=== PATIENT | male | born 1940 | race Caucasian/White ===

== ENCOUNTER 2017-04-09 14:26 | Inpatient (IN) | payer OTHER ==
[~2017-04-09] VITALS: Ht 175.3 cm; Wt 106.3 kg
[2017-04-09 15:40] LABS: HEMATOCRIT 45.6 % (38.0-50.0); HEMOGLOBIN 16.1 G/DL (12.5-16.6); MCHC 35.3 G/DL (30.0-36.0); MCV 99.1 FL (86-99); PLATELET COUNT 238 K/uL (156-360); RBC DIS.WIDTH-CV 12.1 % (11.8-14.6); RBC DIS.WIDTH-SD 43.8 % (39-53); WHITE BLOOD COUNT 9.6 K/uL (4.1-10.2)
[2017-04-09 15:53] LABS: CHLORIDE 105 mEq/L (99-109); POTASSIUM 3.9 mEq/L (3.7-5.4); SODIUM 138 mEq/L (136-147)
[2017-04-09 15:55] LABS: GLUCOSE 120 mg/dL (70-99)
[2017-04-09 15:59] LABS: GFR ESTIMATE (CALCULATED) > 59 mL/min/ (58.99-99999)
[2017-04-09 16:00] LABS: UREA NITROGEN (BUN) 15 mg/dL (9-23)
[2017-04-09 16:04] LABS: TROP-I INTERPRETATION POSITIVE; TROPONIN-I 4.57 ng/mL (0.0-0.30)
[2017-04-09] MEDS ORDERED: CIALIS20 MG PO (16:37)
[2017-04-09] MEDS ORDERED: ATORVASTATIN CA20 MG PO (16:37)
[2017-04-09] MEDS ORDERED: VALSARTAN-HCTZ1 EAC3 PO (16:37)
[2017-04-09] MEDS ORDERED: ASPIR-TRIN325 M1 PO (16:38)
[2017-04-09] MEDS ORDERED: XALATAN2.5 ML BOTH EYES (16:39)
[2017-04-09 16:56] LABS: PTT 27.5 SEC (25-37)
[2017-04-09 17:32] LABS: TROP-I INTERPRETATION POSITIVE
[2017-04-09 17:33] LABS: TROPONIN-I 4.55 ng/mL (0.0-0.30)
[2017-04-09 21:15] VITALS: BP 139/79
[2017-04-09 23:00] VITALS: BP 120/76
[2017-04-10 00:01] LABS: INTER. NORMALIZED RATIO 1.2
[2017-04-10 00:06] LABS: PTT 82.1 SEC (25-37)
[2017-04-10 04:30] VITALS: BP 114/68
[2017-04-10 08:50] VITALS: BP 117/69
[2017-04-10 14:29] VITALS: BP 125/70
[2017-04-10 14:55] LABS: TROP-I INTERPRETATION POSITIVE; TROPONIN-I 1.99 ng/mL (0.0-0.30)
[2017-04-10 15:38] VITALS: BP 124/69
[2017-04-10 16:13] VITALS: BP 122/74
[2017-04-10 19:30] VITALS: BP 115/63
[2017-04-11 00:20] VITALS: BP 130/74
[2017-04-11 04:00] VITALS: BP 111/64
[2017-04-11 06:09] LABS: HEMATOCRIT 40.9 % (38.0-50.0); MCH 34.2 PG (29.0-34.0); MCHC 33.5 G/DL (30.0-36.0); PLATELET COUNT 209 K/uL (156-360); RBC DIS.WIDTH-CV 12.3 % (11.8-14.6); RBC DIS.WIDTH-SD 46.3 % (39-53); RED BLOOD COUNT 4.01 M/uL (4.00-5.50); WHITE BLOOD COUNT 9.5 K/uL (4.1-10.2)
[2017-04-11 06:14] LABS: HEMOGLOBIN 13.7 G/DL (12.5-16.6)
[2017-04-11] MEDS ORDERED: CLOPIDOGREL75 MG PO (07:01)
[2017-04-11] MEDS ORDERED: ATORVASTATIN CA40 MG PO (07:01)
[2017-04-11] MEDS ORDERED: ASPIR-LOW81 MG PO (07:02)
[2017-04-11] MEDS ORDERED: NORVASC5 MG PO (07:03)
[2017-04-11 07:19] VITALS: BP 133/71
[2017-04-11 11:05] VITALS: BP 123/78
== END 2017-04-11 11:33 | disposition home or self-care (01) | DRG 247 ==
LOC: EME 14:26 → 4EAST 19:30 → EDOF 19:30 → ENRESERV 20:22 → 4EAST 21:15
PROVIDERS: Internal Medicine; Internal Medicine Cardiovascular Disease; Physician Assistant
PROC: B2151ZZ Fluoroscopy of Left Heart using Low Osmolar Contrast (ICD-10-PCS; principal; 2017-04-10)
PROC: 027034Z Dilation of Coronary Artery, One Artery with Drug-eluting Intraluminal Device, Percutaneous Approach (ICD-10-PCS; principal; 2017-04-10)
PROC: 4A033BC Measurement of Arterial Pressure, Coronary, Percutaneous Approach (ICD-10-PCS; principal; 2017-04-10)
PROC: 4A023N7 Measurement of Cardiac Sampling and Pressure, Left Heart, Percutaneous Approach (ICD-10-PCS; principal; 2017-04-10)
PROC: B2111ZZ Fluoroscopy of Multiple Coronary Arteries using Low Osmolar Contrast (ICD-10-PCS; principal; 2017-04-10)
DX: I21.4 Non-ST elevation (NSTEMI) myocardial infarction (principal); I25.10 Atherosclerotic heart disease of native coronary artery without angina pectoris; I10 Essential (primary) hypertension; E11.9 Type 2 diabetes mellitus without complications; E78.5 Hyperlipidemia, unspecified; E66.9 Obesity, unspecified; N52.9 Male erectile dysfunction, unspecified; Z87.891 Personal history of nicotine dependence; Z79.82 Long term (current) use of aspirin; Z68.34 Body mass index [BMI] 34.0-34.9, adult; Z82.49 Family history of ischemic heart disease and other diseases of the circulatory system
CPT/HCPCS: 71046; 80048; 84484; 85027; 85347; 85610; 85730; 93005; 99281; 99285; C1725; C1769; C1874; C1887; J0153; J1644; J2250; J3010

== ENCOUNTER 2017-04-14 08:54 | Observation (INO) | payer OTHER ==
[~2017-04-14] VITALS: Ht 175.3 cm; Wt 102.6 kg
[~2017-04-14 08:54] MED LIST: ASPIR-LOW81 MG PO; ASPIR-TRIN325 M1 PO; ATORVASTATIN CA20 MG PO; ATORVASTATIN CA40 MG PO; CIALIS20 MG PO; CLOPIDOGREL75 MG PO; NORVASC5 MG PO; VALSARTAN-HCTZ1 EAC3 PO; XALATAN2.5 ML BOTH EYES
[2017-04-14 09:55] LABS: BASOPHIL (%) 0.4 % (0-1); EOSINOPHIL (%) 0.4 % (0-5); HEMATOCRIT 42.6 % (38.0-50.0); HEMOGLOBIN 15.1 G/DL (12.5-16.6); IMMATURE GRANULOCYTE (%) 0.5 % (0.0-0.7); LYMPHOCYTE (%) 14.7 % (15-42); LYMPHOCYTE COUNT 1.1 K/uL (1.0-2.8); MCH 35.6 PG (29.0-34.0); MCHC 35.4 G/DL (30.0-36.0); MCV 100.5 FL (86-99); MONOCYTE (%) 7.7 % (3-12); MONOCYTE COUNT 0.6 K/uL (0-0.8); NEUTROPHIL (%) 76.3 % (45-76); NEUTROPHIL COUNT 5.9 K/uL (1.8-6.4); PLATELET COUNT 213 K/uL (156-360); RBC DIS.WIDTH-CV 12.1 % (11.8-14.6); RBC DIS.WIDTH-SD 44.8 % (39-53); RED BLOOD COUNT 4.24 M/uL (4.00-5.50); WHITE BLOOD COUNT 7.8 K/uL (4.1-10.2)
[2017-04-14 10:06] LABS: CHLORIDE 106 mEq/L (99-109); POTASSIUM 3.9 mEq/L (3.7-5.4); SODIUM 139 mEq/L (136-147)
[2017-04-14 10:07] LABS: GLUCOSE 119 mg/dL (70-99)
[2017-04-14 10:11] LABS: GFR ESTIMATE (CALCULATED) > 59 mL/min/ (58.99-99999)
[2017-04-14 10:12] LABS: UREA NITROGEN (BUN) 15 mg/dL (9-23)
[2017-04-14 10:13] LABS: INTER. NORMALIZED RATIO 1.1
[2017-04-14 10:15] LABS: TROP-I INTERPRETATION INDETERMINATE; TROPONIN-I 0.54 ng/mL (0.0-0.30)
[2017-04-14 10:18] LABS: PTT 26.1 SEC (25-37)
[2017-04-14 11:44] VITALS: BP 132/63
[2017-04-14 12:08] LABS: MAGNESIUM 2.2 mg/dL (1.3-2.7)
[2017-04-14 14:58] VITALS: BP 120/69
[2017-04-14 15:03] LABS: TROP-I INTERPRETATION INDETERMINATE; TROPONIN-I 0.52 ng/mL (0.0-0.30)
[2017-04-14 20:52] VITALS: BP 112/67
[2017-04-14 22:24] LABS: TROP-I INTERPRETATION INDETERMINATE; TROPONIN-I 0.43 ng/mL (0.0-0.30)
[2017-04-15 00:41] VITALS: BP 126/71
[2017-04-15 04:16] VITALS: BP 110/69
[2017-04-15 05:53] LABS: HEMATOCRIT 45.5 % (38.0-50.0); HEMOGLOBIN 15.4 G/DL (12.5-16.6); MCHC 33.8 G/DL (30.0-36.0); MCV 100.4 FL (86-99); PLATELET COUNT 233 K/uL (156-360); RBC DIS.WIDTH-CV 12.1 % (11.8-14.6); RBC DIS.WIDTH-SD 45.1 % (39-53); RED BLOOD COUNT 4.53 M/uL (4.00-5.50); WHITE BLOOD COUNT 8.3 K/uL (4.1-10.2)
[2017-04-15 06:09] LABS: TROP-I INTERPRETATION INDETERMINATE; TROPONIN-I 0.51 ng/mL (0.0-0.30)
[2017-04-15 06:18] LABS: ALBUMIN 4.4 G/DL (3.2-4.8); ALKALINE PHOSPHATASE 55 IU/L (3-129); ALT (GPT) 22 IU/L (3-49); AST (GOT) 19 IU/L (2-34); CHLORIDE 102 MEQ/L (99-109); CREATININE 1.1 MG/DL (0.6-1.3); GFR ESTIMATE (CALCULATED) > 59 mL/min/ (58.99-99999); GLUCOSE 113 mg/dL (70-99); POTASSIUM 3.8 MEQ/L (3.7-5.4); SODIUM 137 MEQ/L (136-147); TOTAL BILIRUBIN 1.5 MG/DL (0.0-1.0); TOTAL PROTEIN 7.6 G/DL (6.4-8.3); UREA NITROGEN (BUN) 17 mg/dL (9-23)
[2017-04-15 09:07] LABS: TROP-I INTERPRETATION INDETERMINATE; TROPONIN-I 0.32 ng/mL (0.0-0.30)
[2017-04-15] MEDS ORDERED: NITROSTAT0.4 MG SL (09:39)
[2017-04-15] MEDS ORDERED: DOCUSATE SODIU100 MG PO (09:40)
[2017-04-15 10:02] VITALS: BP 119/68
== END 2017-04-15 11:08 | disposition home or self-care (01) ==
LOC: EME 08:54 → EDOF 10:41 → 5WEST 10:41 → ENRESERV 11:07 → 5WEST 11:39
PROVIDERS: Emergency Medicine; Internal Medicine; Internal Medicine Cardiovascular Disease
DX: I21.4 Non-ST elevation (NSTEMI) myocardial infarction (principal); I10 Essential (primary) hypertension; I25.10 Atherosclerotic heart disease of native coronary artery without angina pectoris; E78.5 Hyperlipidemia, unspecified; I65.23 Occlusion and stenosis of bilateral carotid arteries; Z82.49 Family history of ischemic heart disease and other diseases of the circulatory system; Z79.02 Long term (current) use of antithrombotics/antiplatelets; E66.01 Morbid (severe) obesity due to excess calories; Z68.33 Body mass index [BMI] 33.0-33.9, adult; I25.2 Old myocardial infarction; Z95.5 Presence of coronary angioplasty implant and graft; Z80.6 Family history of leukemia; Z79.82 Long term (current) use of aspirin
CPT/HCPCS: 71045; 80048; 80053; 83735; 84484; 85025; 85027; 85610; 85730; 93005; 93880; 99281; 99284; G0378; J1650

== ENCOUNTER 2017-04-20 14:58 | Observation (INO) | payer OTHER ==
[~2017-04-20] VITALS: Ht 175.3 cm; Wt 110.2 kg
[~2017-04-20 14:58] MED LIST changes: +DOCUSATE SODIU100 MG PO; +NITROSTAT0.4 MG SL
[2017-04-20 15:37] LABS: HEMATOCRIT 40.3 % (38.0-50.0); HEMOGLOBIN 13.9 G/DL (12.5-16.6); MCH 34.9 PG (29.0-34.0); MCHC 34.5 G/DL (30.0-36.0); MCV 101.3 FL (86-99); PLATELET COUNT 218 K/uL (156-360); RBC DIS.WIDTH-CV 11.9 % (11.8-14.6); RBC DIS.WIDTH-SD 44.7 % (39-53); RED BLOOD COUNT 3.98 M/uL (4.00-5.50); WHITE BLOOD COUNT 7.2 K/uL (4.1-10.2)
[2017-04-20 15:43] LABS: INTER. NORMALIZED RATIO 1.1
[2017-04-20 15:46] LABS: PTT 24.6 SEC (25-37)
[2017-04-20 15:50] LABS: ALBUMIN 4.1 g/dL (3.2-4.8); CHLORIDE 102 mEq/L (99-109); POTASSIUM 4.1 mEq/L (3.7-5.4); SODIUM 136 mEq/L (136-147)
[2017-04-20 15:52] LABS: GLUCOSE 118 mg/dL (70-99); TOTAL PROTEIN 7.3 g/dL (6.4-8.3)
[2017-04-20 15:54] LABS: TOTAL BILIRUBIN 0.9 mg/dL (0.0-1.0)
[2017-04-20 15:56] LABS: ALKALINE PHOSPHATASE 62 IU/L (3-129); CREATININE 1.4 mg/dL (0.6-1.3); GFR ESTIMATE (CALCULATED) 53 mL/min/ (58.99-99999)
[2017-04-20 15:57] LABS: UREA NITROGEN (BUN) 24 mg/dL (9-23)
[2017-04-20 15:58] LABS: AST (GOT) 18 IU/L (2-34)
[2017-04-20 15:59] LABS: ALT (GPT) 24 IU/L (3-49); LIPASE 70 U/L (1.0-51.0)
[2017-04-20 15:59] LABS: TROP-I INTERPRETATION NEGATIVE; TROPONIN-I 0.01 ng/mL (0.0-0.30)
[2017-04-20 18:21] VITALS: BP 136/71
[2017-04-20 20:28] LABS: TROP-I INTERPRETATION NEGATIVE; TROPONIN-I 0.02 ng/mL (0.0-0.30)
[2017-04-20 23:33] VITALS: BP 132/68
[2017-04-21 02:28] LABS: TROP-I INTERPRETATION NEGATIVE; TROPONIN-I 0.01 ng/mL (0.0-0.30)
[2017-04-21 03:12] VITALS: BP 147/77
[2017-04-21 06:14] LABS: HEMATOCRIT 39.9 % (38.0-50.0); HEMOGLOBIN 14.1 G/DL (12.5-16.6); MCH 35.4 PG (29.0-34.0); MCHC 35.3 G/DL (30.0-36.0); MCV 100.3 FL (86-99); PLATELET COUNT 213 K/uL (156-360); RBC DIS.WIDTH-SD 44.5 % (39-53); RED BLOOD COUNT 3.98 M/uL (4.00-5.50); WHITE BLOOD COUNT 7.3 K/uL (4.1-10.2)
[2017-04-21 06:52] LABS: CHLORIDE 105 MEQ/L (99-109); GFR ESTIMATE (CALCULATED) > 59 mL/min/ (58.99-99999); GLUCOSE 108 mg/dL (70-99); POTASSIUM 4.5 MEQ/L (3.7-5.4); SODIUM 138 MEQ/L (136-147); UREA NITROGEN (BUN) 17 mg/dL (9-23)
[2017-04-21 07:54] VITALS: BP 125/72
[2017-04-21 10:56] VITALS: BP 133/71
[2017-04-21] MEDS ORDERED: PEPCID20 MG PO (11:46)
[2017-04-21 19:41] VITALS: BP 130/65
[2017-04-21 23:22] VITALS: BP 119/67
[2017-04-22 05:28] VITALS: BP 129/68
[2017-04-22 08:35] VITALS: BP 143/76
[2017-04-22 11:37] VITALS: BP 117/72
== END 2017-04-22 15:52 | disposition home or self-care (01) ==
LOC: EME 14:58 → EDOF 17:09 → 5WEST 17:09 → EDOF 17:09 → ENRESERV 17:10 → 5WEST 18:16 → ENRESERV 04-21 15:29 → 4EAST 04-21 19:22
PROVIDERS: Emergency Medicine; Hospitalist
DX: I25.10 Atherosclerotic heart disease of native coronary artery without angina pectoris (principal); Z95.5 Presence of coronary angioplasty implant and graft; I21.4 Non-ST elevation (NSTEMI) myocardial infarction; I10 Essential (primary) hypertension; E78.5 Hyperlipidemia, unspecified; E66.01 Morbid (severe) obesity due to excess calories; Z68.35 Body mass index [BMI] 35.0-35.9, adult; Z79.02 Long term (current) use of antithrombotics/antiplatelets; Z79.82 Long term (current) use of aspirin; Z82.49 Family history of ischemic heart disease and other diseases of the circulatory system; Z80.6 Family history of leukemia
CPT/HCPCS: 71045; 71275; 80048; 80053; 83690; 84484; 85027; 85347; 85610; 85730; 86850; 86900; 86901; 93005; 99281; 99285; C1725; C1769; C1874; C1887; G0378; J1644; J1650; J2250; J3010; J7030; S0028